=== PATIENT | male | born 1965 | race Caucasian/White ===

== ENCOUNTER 2020-08-15 07:59 | Emergency (ER) | payer OTHER ==
[2020-08-15] MEDS ORDERED: cefTRIAXone 2 GM Vial IV ONE (08:17)
[2020-08-15] MEDS ORDERED: Sodium Chloride 0.9% 1,000 ML IV ONE (08:17)
[2020-08-15] MEDS ORDERED: Sodium Chloride 0.9% 10 ML Syringe FLUSH PRN (08:17)
--- NOTE | 2020-08-15 08:17 | EDM.PDOC ---
ED HPI GENERAL MEDICAL PROBLEM - General Chief Complaint: Fever Stated Complaint: Fever Time Seen by Provider: 08/15/20 08:15 Source of Information: Reports: Patient, [facility]sp Records, Old Records ([facility] chart/EMR), Other ([facility] EMR) History Limitations: Reports: No Limitations - History of Present Illness INITIAL COMMENTS - FREE TEXT/NARRATIVE: The patient was brought to the emergency room via ambulance with heel scourer accompaniment with no treatment in route. Note that the patient did have a fever of 105.3 degrees at 12:30 PM yesterday with persistent intermittent fevers despite Tylenol therapy throughout the day and evening. He did have a fever of 102.9 at 4:30 AM with 650 mg of Tylenol given at that time. Patient does have a chronic left ischiatic decubitus ulcer with current wound VAC therapy with culture taken at [facility] in [place] last week. He is also had a recent negative COVID-19 evaluation with no known exposure to infection. Earlier this morning the halfway nurse did notice some increasing erythema in his left leg. Patient does have a chronic suprapubic catheter with catheter bag changed yesterday by patient history. The patient denies any current pain or discomfort, however note paraplegia as below. The patient also denies any recent cough, wheezing, dyspnea, etc.. The patient denies any chest pain/ pressure, heart flutter, dizziness, orthostasis, orthopnea, diaphoresis, paresthesias, recent decreased exercise tolerance, or any other anginal-type symptoms. No recent history of abdominal pain, heartburn, nausea, diarrhea, melena, gross hematochezia, or any food intolerance, including fatty foods, etc. with current colostomy bag care. Onset: Gradual Onset Date: 08/14/20 Onset Time: 12:30 Duration: Getting Worse Location: Reports: Other (No pain) Improves with: Reports: None Worsens with: Reports: None Context: Reports: Other (As above). Denies: Sick Contact, Trauma Associated Symptoms: Reports: Fever/Chills, Rash (Cellulitis left leg), Weakness (Stable chronic paraplegia of the lower extremities). Denies: Confusion, Chest Pain, Cough, Diaphoresis, Headaches, Loss of Appetite, Malaise, Nausea/Vomiting, Seizure, Shortness of Breath, Syncope Treatments ALMOND HULLER: Reports: Acetaminophen - Related Data Allergies Allergy/AdvReac Type Severity Reaction Status Date / Time No Known Allergies Allergy Verified 08/15/20 10:06 Past Medical History HEENT History: Reports: Cataract, Impaired Vision, Retinal Detachment. Denies: Allergic Rhinitis, Glaucoma, Hard of Hearing, Macular Degeneration, Otitis Media Other HEENT History: Left-sided retinal detachment in March 2018 with surgery as below. Patient does wear glasses. Cardiovascular History: Reports: Blood Clots/VTE/DVT, Cardiomyopathy, High Cholesterol, PVD, Other (See Below). Denies: Afib, Arrhythmia, CAD, Heart Failure, Heart Murmur, Hypertension, Syncope Other Cardiovascular History: Chronic cannulated left leg DVT by last venous Doppler studies on 05/06/2020. Previous DVT of the left leg on 09/01/2013 and 03/04/2012 with secondary bilateral PEs. Previous DVT of the left leg on 10/08/2011? Severe bilateral peripheral vascular disease of the lower extremities requiring stent placement as below. Elevated blood pressures without history of hypertension. Dyslipidemia. Grade 1 diastolic dysfunction by echocardiogram in 2019. Respiratory History: Reports: Intubation, Previous, PE, Sleep Apnea. Denies: Asthma, Bronchitis, Recurrent, COPD (No previous asthma or emphysema), Intubation, Difficult, Pneumonia, Recurrent, Pneumothorax, TB ( collapsed lungs tuberculosis any family) Other Respiratory History: Patient is compliant with his CPAP. Gastrointestinal History: Reports: Chronic Constipation, Colon Polyp, Diverticulosis, Fecal Incontinence, Gastritis, GERD, Hiatal Hernia, Other (See Below). Denies: Celiac Disease, Cholelithiasis, Chronic Diarrhea, Hepatitis, Inflammatory Bowel Disease, Irritable Bowel Syndrome, Jaundice, Pancreatitis Other Gastrointestinal History: Kennedy's esophagus although negative biopsy by EGD on 10/26/2016. History of recurrent colonic polyps including hyperplastic colonic polyp at the hepatic flexure and tubular adenoma [place] of the ascending colon on 10/24/2013, tubular adenoma in the sigmoid region on 10/26/2016 with additional possible small cecal polyp not evaluated at that time. Hepatomegaly. Genitourinary History: Reports: BPH (None none), Neurogenic Bladder, Retention, Urinary, Urinary Incontinence, UTI, Recurrent, Other (See Below). Denies: Acute Renal Failure, Chronic Renal Insuffiency, Renal Calculus, STD Other Genitourinary History: Neurogenic bladder secondary to paralysis as below. BPH with PSA elevation with no biopsies to this point. Musculoskeletal History: Reports: Arthritis, Back Pain, Chronic, Fracture, Osteoarthritis, Other (See Below). Denies: Gout, Neck Pain, Chronic, RA, SLE Other Musculoskeletal History: Left ankle fracture in August 2014 with surgery as below. Right foot calcaneal spur. Neurological History: Reports: Other (See Below) (Mini strokes dizziness nothing like that now). 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 Learning disability. Psychiatric History: Reports: Anxiety, Depression. Denies: Abuse, Victim of, ADD, ADHD, Addiction, Psych Hospitalization(s), PTSD, Suicide Attempt, Suicidal Ideation Endocrine/Metabolic History: Reports: Hypokalemia, Obesity/BMI 30+, Other (See Below). Denies: Diabetes, Type I, Diabetes, Type II, Diabetes Mellitus, Type 3c, Hypothyroidism, IDDM Other Endocrine/Metabolic History: Hyperglycemia with patient denying AODM. Hematologic History: Reports: Anemia, Blood Transfusion(s), Other (See Below) Other Hematologic History: Multiple blood transfusions in August 2019 secondary to lumbar AVM spontaneous rupture as above. Immunologic History: Reports: Immunosuppression, Other (See Below). Denies: AIDS, HIV, SLE Other Immunologic History: CLL Oncologic (Cancer) History: Reports: Leukemia, Other (See Below). Denies: Basal Cell Carcinoma, Colon, Esophageal, Hodgkin's Lymphoma, Lymphoma, Malignant Melanoma, Metastatic, Non-Hodgkin's Lymphoma, Prostate, Squamous Cell Carcinoma Other Oncologic History: CLL diagnosed on 10/11/2018 with previous chemotherapy. Dermatologic History: Reports: Other (See Below). Denies: Eczema, Psoriasis Other Dermatologic History: Recurrent decubitus ulcers secondary to paraplegia. - Infectious Disease History Infectious Disease History: Reports: Chicken Pox (Not certain). Denies: C- Difficile, Measles, Meningitis, Mononucleosis, MRSA, Mumps, Novel Coronavirus, Pertussis (Whooping Cough), Rheumatic Fever, Rubella, Scarlet Fever, Shingles, TB, VRE - Past Surgical History Head Surgeries/Procedures: Reports: None. Denies: Craniotomy HEENT Surgical History: Reports: Cataract Surgery, Oral Surgery, Other (See Below). Denies: Adenoidectomy, Eye Surgery, Laser Surgery, LASIK, Myringotomy w Tube(s), Naso-Sinus Surgery, Tonsillectomy Other HEENT Surgeries/Procedures: Left eye retinal detachment repair/vitrectomy/laser on 04/09/2018. Bilateral cataract surgery in August 2018. [place] teeth extraction x4 in his 20s. Cardiovascular Surgical History: Reports: Vascular Surgery, Other (See Below). Denies: Varicose Other Cardiovascular Surgeries/Procedures: Bilateral lower leg angioplasty and subsequent stent placement secondary to peripheral vascular disease on 04/21/2020. IVC filter placements in 2013, 12/05/2018, and 08/12/2019 with subsequent IVC filter removal on 02/11/2014, 03/10/2019, and 02/23/2020. Inferior vena cava umbrella placements Respiratory Surgical History: Reports: None. Denies: Thoracentesis GI Surgical History: Reports: Colonoscopy, Colostomy, EGD, Polypectomy, Other (See Below). Denies: Appendectomy, Cholecystectomy, Hernia, Abdominal, Hernia, Inguinal, Hernia Repair/Other Other GI Surgeries/Procedures: EGD and colonoscopy on 10/26/2016 with polypectomy as above. Previous colonoscopy on 10/24/2013 with polypectomies as above. Colostomy placement on 10/03/2019. Female Surgical History: Reports: Cystoscopy, Other (See Below) Other Female Surgeries/Procedures: Cystoscopy on 03/21/2019. Suprapubic catheter placement on 09/15/2019. Male Surgical History: Reports: Circumcision, Suprapubic Catheter Placement, Other (See Below). Denies: Prostate Biopsy, TURP-Transurethral Resection of Prostate, Vasectomy Other Male Surgeries/Procedures: Suprapubic catheter placement in August 2019. Circumcision as an . Endocrine Surgical History: Reports: None. Denies: Thyroid Biopsy Neurological Surgical History: Reports: Laminectomy, Lumbar Spine, Spinal Fusion, Other (See Below). Denies: C-Spine, Discectomy, Sacral Spine, Thoracic Spine, Vertebroplasty Other Neurological Surgeries/Procedures: Lumbar spine laminectomy and fusion with additional hematoma evacuation secondary to spontaneous AVM rupture on 08/10/2019. Musculoskeletal Surgical History: Reports: ORIF, Other (See Below). Denies: Arthroscopic Procedure, Carpal Tunnel, Ganglion Cyst, Joint Replacement, Shoulder Surgery Other Musculoskeletal Surgeries/Procedures:: ORIF of right ankle fracture on 08/27/2014 with subsequent hardware removal on 12/03/2014. Oncologic Surgical History: Reports: Bone Marrow Aspiration, Lumpectomy, Other (See Below) Other Oncologic Surgeries/Procedures: Bone marrow fine-needle aspiration and biopsy on 10/16/2018. Right axillary lymph node biopsy on 10/16/2018. Dermatological Surgical History: Reports: None - Past Imaging History Past Imaging History: Reports: Cardiac Echo (08/17/2019 with ejection fraction of 60-65% and findings as above.), CAT Scan (CT of the chest, abdomen, and pelvis on 07/27/2020 and 02/23/2020. CT of the abdomen pelvis on 05/06/2020. CT of the chest on 12/29/2011.), PET (PET/CT from the skull to the mid thigh on 04/21/2020.), Venous Doppler (Left leg on 05/06/2020.), Other (See Below) (Spinal angiograms on 11/24/2019 and 08/13/2019.) Social & Family History - Family History HEENT: Reports: Allergic Rhinitis, Other (See Below). Denies: Glaucoma, Macular Degeneration, Retinal Detachment Other HEENT Family History: Brother with allergic rhinitis. Cardiac: Reports: High Cholesterol, Hypertension, Other (See Below). Denies: Afib, Aneurysm, Arrhythmia, Blood Clots/VTE/DVT, Bypass, CAD, Heart Failure, Heart Murmur, DC, Stent, Syncope Other Cardiac Family History: Hypertension hyperlipidemia in mother, maternal uncle x2 and maternal aunt. Respiratory: Reports: Asthma, Other (See Below). Denies: COPD, PE, Pneumothorax, Sleep Apnea Other Respiratory Family Hisory: Brother with asthma. Neurological: Reports: CVA, Other (See Below). Denies: Alzheimers Disease, Cerebral Aneurysms, Dementia, Migraines, MS, Parkinson's, Seizure, TIA, Vertigo Other Neurological Family History: Paternal uncle with fatal CVA in his mid 60s. Endocrine/Metabolic: Reports: Diabetes, type II, Other (See Below). Denies: Diabetes, Gestational, Diabetes, Type I, Diabetes Mellitus, Type 3c (Thyroid problems in the family), Hypothyroidism, IDDM Other Endocrine/Metabolic Family History: Paternal grandmother with AODM. Oncologic: Reports: Leukemia, Other (See Below). Denies: Colon, Hodgkin's Lymphoma, Lung, Lymphoma, Non-Hodgkin's Lymphoma, Prostate, Skin Other Oncologic Family History: Maternal grandmother with fatal leukemia in her late 70s. - Tobacco Use Tobacco Use Status *Q: Never Tobacco User Tobacco Use Within Last Twelve Months: No Used Tobacco, but Quit: No Smoking Cessation Information Provided To Patient: No Second Hand Smoke Exposure: No Second Hand Smoke Education Provided: No - Caffeine Use Caffeine Use: Reports: Soda (1 soda per week). Denies: Coffee, Energy Drinks, Tea - Alcohol Use Alcohol Use History: No Days Per Week of Alcohol Use: 0 Number of Drinks Per Day: 0 Number of Drinks Per Day Comment: No previous DWIs, problems with alcohol abuse, etc.. Previously drank 12 beers per month. Total Drinks Per Week: 0 Alcohol Use in Last Twelve Months: No - Recreational Drug Use Recreational Drug Use: No Drug Use in Last 12 Months: No Recreational Drug Type: Denies: Amphetamines (Speed), Cocaine, Heroin, Inhalants (Glues, Solvents, Aerosols), LSD (Acid), Marijuana/Hashish, Methamphetamine, Morphine, Oxycodone - Living Situation & Occupation Living situation: Reports: Single (No children), Extended Care Facility ([facility] [place] [place] in [place] since October 2019 secondary to his paraplegia.) Occupation: Disabled (Disabled secondary to lower extremity paralysis as above in August 2019 and previously worked for the [employer].) ED ROS GENERAL - Review of Systems Review Of Systems: Comprehensive ROS is negative, except as noted in HPI. ED EXAM, GENERAL - Physical Exam Exam: See Below Exam Limited By: No Limitations General Appearance: Alert, No Apparent Distress Eye Exam: Bilateral Eye: EOMI, Normal Inspection (No nystagmus or vertigo. The patient is wearing glasses.), PERRL Ears: Normal External Exam, Normal Canal, Hearing Grossly Normal, Normal TMs Nose: Normal Inspection, Normal Mucosa, No Blood Throat/Mouth: Normal Inspection, Normal Lips, Normal Teeth, Normal Gums, Normal Oropharynx, Normal Voice, No Airway Compromise. No: Dysphagia, Perioral Cyanosis Head: Atraumatic, Normocephalic. No: Facial Swelling, Facial Tenderness, Sinus Tenderness Neck: Normal Inspection, Supple, Non-Tender, Full Range of Motion. No: Carotid Bruit, Lymphadenopathy (L), Lymphadenopathy (R), Thyromegaly Respiratory/Chest: No Respiratory Distress, Lungs Clear, Normal Breath Sounds, No Accessory Muscle Use, Chest Non-Tender. No: Pleural Rub, Retractions Cardiovascular: Normal Peripheral Pulses, No Gallop, No JVD, No Murmur, No Rub, Tachycardia (Regular rhythm). No: No Edema (Dependent edema as below), Gallop/S3, Gallop/S4, Extra Beats, Friction Rub Peripheral Pulses: 2+: Radial (L), Radial (R), Dorsalis Pedis (L), Dorsalis Pedis (R) GI/Abdominal: Normal Bowel Sounds, Soft, Non-Tender, No Organomegaly, No Distention, No Abnormal Bruit, No Mass, Other (Obese. Colostomy bag with brown stool). No: Guarding (Male) Exam: Deferred Rectal (Males) Exam: Deferred Back Exam: Normal Inspection, Full Range of Motion. No: CVA Tenderness (L), CVA Tenderness (R), Muscle Spasm Extremities: Non-Tender (Note paraplegia), Normal Capillary Refill, Pedal Edema (+1 bilateral pedal/pretibial edema), Other (Onychomycosis in the toenails. 4 cm grade 12 right lateral malleolar ulcer. +1+2 erythema extending over the extensor surface of the left thigh to the infrapatellar region.). No: Normal Range of Motion (Paraplegia lower extremities), Teri's Sign Neurological: Alert, Oriented, Normal Cognition, Other (Stable by history paraplegia of the lower extremities). No: Normal Gait Psychiatric: Normal Affect, Normal Mood Skin Exam: Erythema, Increased Warmth (Mild left leg), Wound/Incision (As above including additional left ischiatic decubitus ulcer with current wound VAC therapy). No: Diaphoretic, Lymphangitis Lymphatic: No Adenopathy Course - Vital Signs Last Recorded V/S: Last Vital Signs Temp 37.9 C 08/15/20 10:32 Pulse 102 H 08/15/20 10:32 Resp 18 08/15/20 10:32 BP 113/53 L 08/15/20 10:32 Pulse Ox 94 L 08/15/20 10:32 Vital Signs - 24 hr 08/15/20 08/15/20 08/15/20 08:00 08:15 08:30 Temperature [ 38.3 C H Temporal] Pulse, 108 H Peripheral [ Right Pulse Oximetry] Respiratory 18 Rate Blood Pressure 140/72 129/69 105/85 [Left Upper Arm ] O2 Sat by Pulse 95 Oximetry 08/15/20 08/15/20 08/15/20 08:40 08:55 09:10 Temperature [ 38.3 C H 37.8 C Temporal] Pulse, 106 H 105 H 107 H Peripheral [ Right Pulse Oximetry] Respiratory 18 18 18 Rate Blood Pressure 134/74 138/72 138/69 [Left Upper Arm ] O2 Sat by Pulse 96 96 95 Oximetry 08/15/20 08/15/20 09:26 10:32 Temperature [ 37.9 C Temporal] Pulse, 103 H 102 H Peripheral [ Right Pulse Oximetry] Respiratory 18 18 Rate Blood Pressure 133/72 113/53 L [Left Upper Arm ] O2 Sat by Pulse 95 94 L Oximetry - Orders/Labs/Meds Orders: Active Orders 24 hr Category Date Time Status Blood Pressure Mgt: Sepsis [RC] [id number] Care 08/15/20 08:18 Active Cardiac Monitoring [RC] CONTINUOUS Care 08/15/20 08:19 Active Chest 1V Frontal [CR] Stat Exams 08/15/20 08:17 Taken CULTURE BLOOD [BC] Stat Lab 08/15/20 08:16 Received CULTURE BLOOD [BC] Stat Lab 08/15/20 08:26 Received CULTURE URINE [RM] Stat Lab 08/15/20 08:34 Received Sodium Chloride 0.9% [Saline Flush] Med 08/15/20 08:17 Active 10 ml FLUSH ASDIRECTED PRN Vancomycin 2 gm Med 08/15/20 09:13 Active Sodium Chloride 0.9% [Normal Saline] 500 ml IV ONETIME Blood Culture x2 Reflex Set [OM.PC] Stat Oth 08/15/20 08:17 Ordered Isolation [COMM] Routine Oth 08/15/20 08:27 Active Saline Lock Insert [OM.PC] Stat Oth 08/15/20 08:17 Ordered Severe Sepsis Onset Time [OM.PC] Stat Oth 08/15/20 08:17 Ordered Medication Orders Vancomycin HCl 2 gm/ Sodium (Chloride) 500 mls @ 165 mls/hr IV ONETIME ONE Stop: 08/15/20 12:14 Last Admin: 08/15/20 09:40 Dose: 165 mls/hr Documented by: MICHAEL Sodium Chloride (Saline Flush) 10 ml FLUSH ASDIRECTED PRN PRN Reason: Keep Vein Open Labs: Laboratory Tests 08/15/20 08/15/20 08/15/20 Range/Units 08:03 08:16 08:16 WBC 30.5 H (4.0-10.2) K/uL RBC 4.71 (4.33-5.41) M/uL Hgb 12.5 L D (13.1-16.8) g/dL Hct 38.6 L (39.0-49.0) % MCV 82.0 L D (84.0-98.0) fL MCH 26.5 L (28.2-33.3) pg MCHC 32.4 (31.7-36.0) g/dL RDW 21.3 H (11.2-14.1) % Plt Count 191 (150-350) K/uL Neut % (Auto) 83.6 H (45.0-80.0) % Lymph % (Auto) 7.0 L (10.0-50.0) % Patrick % (Auto) 9.3 (2.0-14.0) % Eos % (Auto) 0.0 (0.0-5.0) % Baso % (Auto) 0.1 (0.0-2.0) % Neut # (Auto) 25.47 H (1.40-7.00) K/uL Lymph # (Auto) 2.14 (0.50-3.50) K/uL Patrick # (Auto) 2.85 H (0.00-1.00) K/uL Eos # (Auto) 0.01 (0.00-0.50) K/uL Baso # (Auto) 0.04 (0.00-0.20) K/uL PT 12.5 H (9.5-12.0) SEC INR 1.3 APTT 37.7 H (24.5-32.8) SEC Sodium (136-145) mmol/L Potassium (3.5-5.1) mmol/L Chloride (98-107) mmol/L Carbon Dioxide (21.0-32.0) mmol/L BUN (7-18) mg/dL Creatinine (0.51-1.17) mg/dL Est Cr Clr Drug Dosing Estimated GFR (MDRD) mL/min Glucose (74-106) mg/dL Lactic Acid (0.4-2.0) mmol/L Calcium (8.5-10.1) mg/dL Total Bilirubin (0.2-1.0) mg/dL AST (15-37) U/L ALT (12-78) U/L Alkaline Phosphatase (46-116) IU/L C-Reactive Protein (<=0.9) mg/dL Total Protein (6.4-8.2) g/dL Albumin (3.4-5.0) g/dL Amylase (25-115) U/L Lipase (73-393) U/L Specimen Type Urine Color Urine Appearance Urine pH (5.0-9.0) Ur Specific [place] (1.005-1.030) Urine Protein (NEGATIVE) mg/dL Urine Glucose (UA) (NEGATIVE) mg/dL Urine Ketones (NEGATIVE) mg/dL Urine Occult Blood (NEGATIVE) Urine Nitrite (NEGATIVE) Urine Bilirubin (NEGATIVE) Urine Urobilinogen (0.2-1.0) E.U./dL Ur Leukocyte Esterase (NEGATIVE) Urine RBC /HPF Urine WBC /HPF Ur Epithelial Cells /LPF Other Crystals /HPF Urine Bacteria (NONE TO FEW) /HPF SARS-CoV-2 RNA (FRANSICO) Negative (NEGATIVE) 08/15/20 08/15/20 08/15/20 Range/Units 08:16 08:16 08:34 WBC (4.0-10.2) K/uL RBC (4.33-5.41) M/uL Hgb (13.1-16.8) g/dL Hct (39.0-49.0) % MCV (84.0-98.0) fL MCH (28.2-33.3) pg MCHC (31.7-36.0) g/dL RDW (11.2-14.1) % Plt Count (150-350) K/uL Neut % (Auto) (45.0-80.0) % Lymph % (Auto) (10.0-50.0) % Patrick % (Auto) (2.0-14.0) % Eos % (Auto) (0.0-5.0) % Baso % (Auto) (0.0-2.0) % Neut # (Auto) (1.40-7.00) K/uL Lymph # (Auto) (0.50-3.50) K/uL Patrick # (Auto) (0.00-1.00) K/uL Eos # (Auto) (0.00-0.50) K/uL Baso # (Auto) (0.00-0.20) K/uL PT (9.5-12.0) SEC INR APTT (24.5-32.8) SEC Sodium 133 L (136-145) mmol/L Potassium 4.3 (3.5-5.1) mmol/L Chloride 97 L (98-107) mmol/L Carbon Dioxide 26.4 (21.0-32.0) mmol/L BUN 19 H (7-18) mg/dL Creatinine 0.61 (0.51-1.17) mg/dL Est Cr Clr Drug Dosing TNP Estimated GFR (MDRD) > 60 mL/min Glucose 283 H (74-106) mg/dL Lactic Acid 2.2 H (0.4-2.0) mmol/L Calcium 9.0 (8.5-10.1) mg/dL Total Bilirubin 0.5 (0.2-1.0) mg/dL AST 27 (15-37) U/L ALT 51 (12-78) U/L Alkaline Phosphatase 82 (46-116) IU/L C-Reactive Protein 62.2 H (<=0.9) mg/dL Total Protein 7.2 (6.4-8.2) g/dL Albumin 3.4 (3.4-5.0) g/dL Amylase 16 L (25-115) U/L Lipase 76 (73-393) U/L Specimen Type Urinsp Urine Color Yellow Urine Appearance Turbid Urine pH 5.0 (5.0-9.0) Ur Specific [place] >= 1.030 (1.005-1.030) Urine Protein >=300 H (NEGATIVE) mg/dL Urine Glucose (UA) Negative (NEGATIVE) mg/dL Urine Ketones Negative (NEGATIVE) mg/dL Urine Occult Blood Large H (NEGATIVE) Urine Nitrite Positive H (NEGATIVE) Urine Bilirubin Negative (NEGATIVE) Urine Urobilinogen 0.2 (0.2-1.0) E.U./dL Ur Leukocyte Esterase Small H (NEGATIVE) Urine RBC 5-10 H /HPF Urine WBC Packed /HPF Ur Epithelial Cells Occasional /LPF Other Crystals Occasional /HPF Urine Bacteria Many H (NONE TO FEW) /HPF SARS-CoV-2 RNA (FRANSICO) (NEGATIVE) Meds: Medications Generic Name Dose Route Start Last Admin Trade Name Freq PRN Reason Stop Dose Admin Vancomycin HCl 2 gm/ Sodium 500 mls @ 165 mls/hr 08/15/20 09:13 08/15/20 09:40 Chloride IV 08/15/20 12:14 165 mls/hr ONETIME ONE Administration Sodium Chloride 10 ml 08/15/20 08:17 Saline Flush FLUSH ASDIRECTED PRN Keep Vein Open Discontinued Medications Generic Name Dose Route Start Last Admin Trade Name Freq PRN Reason Stop Dose Admin Ceftriaxone Sodium 2 gm 08/15/20 08:17 08/15/20 08:50 Rocephin IV 08/15/20 08:18 2 gm STAT ONE Administration Famotidine 40 mg 08/15/20 08:28 08/15/20 08:50 Pepcid IVPUSH 08/15/20 08:29 40 mg ONETIME ONE Administration Sodium Chloride 1,000 mls @ 999 mls/hr 08/15/20 08:17 08/15/20 08:51 Normal Saline IV 08/15/20 09:17 999 mls/hr BOLUS ONE Administration Protocol Pantoprazole Sodium 40 mg 08/15/20 08:28 08/15/20 08:41 Protonix Iv IVPUSH 08/15/20 08:29 40 mg ONETIME ONE Administration Vancomycin HCl Confirm 08/15/20 09:30 08/15/20 09:41 Vancomycin Administered 08/15/20 09:31 Not Given Dose 2 gm .ROUTE .STK-MED ONE Departure - Departure Time of Disposition: 11:03 Disposition: DC/Tfer to [facility] 02 Clinical Impression: CLL (chronic lymphocytic leukemia), Hyperglycemia, Obesity (BMI 30-39.9), Peptic reflux disease, Hyponatremia, Paraplegia Sepsis Qualifiers: Sepsis type: sepsis due to unspecified organism Sepsis acute organ dysfunction status: without acute organ dysfunction Qualified Code(s): A41.9 - Sepsis, unspecified organism Anemia Qualifiers: Anemia type: other cause Other causes of anemia: other cause, not classified Qualified Code(s): D64.89 - Other specified anemias Osteoarthritis Qualifiers: Osteoarthritis location: multiple joints Osteoarthritis type: primary Qualified Code(s): M89.49 - Other hypertrophic osteoarthropathy, multiple sites Cellulitis Qualifiers: Site of cellulitis: extremity Site of cellulitis of extremity: lower extremity Laterality: left Qualified Code(s): L03.116 - Cellulitis of left lower limb UTI (urinary tract infection) Qualifiers: Urinary tract infection type: acute cystitis Hematuria presence: with hematuria Qualified Code(s): N30.01 - Acute cystitis with hematuria - Discharge Information *PRESCRIPTION DRUG MONITORING PROGRAM REVIEWED*: Not Applicable *COPY OF PRESCRIPTION DRUG MONITORING REPORT IN PATIENT GAGE: Not Applicable Referrals: PCP,None [Primary Care Provider] - Forms: ED Department Discharge, Interfacility Transfer [facility] Sepsis Event Note (ED) - Focused Exam Vital Signs: Vital Signs Temp Pulse Resp BP Pulse Ox 08/15/20 10:32 37.9 C 102 H 18 113/53 L 94 L 08/15/20 09:26 103 H 18 133/72 95 08/15/20 09:10 37.8 C 107 H 18 138/69 95 08/15/20 08:55 105 H 18 138/72 96 08/15/20 08:40 38.3 C H 106 H 18 134/74 96 08/15/20 08:30 105/85 08/15/20 08:15 129/69 08/15/20 08:00 38.3 C H 108 H 18 140/72 95 - Problem List & Annotations (1) Sepsis SNOMED Code(s): 72271232 Code(s): A41.9 - SEPSIS, UNSPECIFIED ORGANISM Status: Acute Priority: High Current Visit: No Onset Date: 08/15/20 Annotation/Comment:: Sepsis by clinical picture and exam with sepsis order set initiated immediately upon patient's arrival to this facility. Note significant fever, leukocytosis, mildly elevated lactic acid level, and significantly elevated CRP. Patient did receive 2 g of IV Rocephin with subsequent initiation of 2 g of IV vancomycin with dose confirmed with on-call pharmacist. In addition, initiation of 1 L IV bolus of normal saline. Telephone consultation at 9:[address] Baires, emergency room physician at [facility], did discuss the case further with their hospitalist, who did accept the patient for direct admission at 10 AM this morning. No further treatment recommendations were given. Multiple possible sources of infection, including probable urosepsis, cellulitis of the left leg, left ischiatic decubitus ulcers, etc.. Blood cultures x2 and urine specimen for culture and sensitivity were collected prior to initiation of the antibiotic therapy as above. Vital signs and clinical exam were stable at time of transfer with continuation of the IV therapy as above by the paramedics in route. Qualifiers: Sepsis type: sepsis due to unspecified organism Sepsis acute organ dysfunction status: without acute organ dysfunction Qualified Code(s): A41.9 - Sepsis, unspecified organism (2) UTI (urinary tract infection) SNOMED Code(s): 45024870 Code(s): N39.0 - URINARY TRACT INFECTION, SITE NOT SPECIFIED Status: Acute Priority: High Current Visit: No Onset Date: 08/15/20 Annotation/Comment:: Urine specimen set up for culture and sensitivity. Possible urosepsis as above. Note suprapubic catheter secondary to neurogenic bladder. Qualifiers: Urinary tract infection type: acute cystitis Hematuria presence: with hematuria Qualified Code(s): N30.01 - Acute cystitis with hematuria (3) Cellulitis SNOMED Code(s): 878081851 Code(s): L03.90 - CELLULITIS, UNSPECIFIED Status: Acute Priority: High Current Visit: No Onset Date: 08/15/20 Annotation/Comment:: Cellulitis of the left leg possibly extending from his left ischiatic decubitus ulcer as above. Culture has already been obtained at [facility] as above, however results are not available at this time. Qualifiers: Site of cellulitis: extremity Site of cellulitis of extremity: lower extremity Laterality: left Qualified Code(s): L03.116 - Cellulitis of left lower limb (4) CLL (chronic lymphocytic leukemia) SNOMED Code(s): 22489854 Code(s): C91.10 - CHRONIC LYMPHOCYTIC LEUK OF B-CELL TYPE NOT ACHIEVE REMIS Status: Chronic Priority: High Current Visit: No Annotation/Comment:: Significant leukocytosis secondary to his current sepsis and previous CLL. By patient history as oncologist was planning restarting his chemotherapy. Oncology consultation by accepting providers. (5) Anemia SNOMED Code(s): 790793830 Code(s): D64.9 - ANEMIA, UNSPECIFIED Status: Acute Priority: Medium Current Visit: No Onset Date: 08/15/20 Annotation/Comment:: No evidence of acute bleeding at this time despite Xarelto therapy. Continue to observe closely by her regular providers with further work-up depending on his clinical course. No thrombocytopenia despite his CLL. Qualifiers: Anemia type: other cause Other causes of anemia: other cause, not classified Qualified Code(s): D64.89 - Other specified anemias (6) Hyperglycemia SNOMED Code(s): 94742881 Code(s): R73.9 - HYPERGLYCEMIA, UNSPECIFIED Status: Chronic Priority: Medium Current Visit: No Annotation/Comment:: Long history of hyperglycemia without known diabetes mellitus. Recommend glycosylated hemoglobin by accepting providers. Insulin sliding scale depending on his clinical course. (7) Hyponatremia SNOMED Code(s): 73823848 Code(s): E87.1 - HYPO-OSMOLALITY AND HYPONATREMIA Status: Acute Priority: Medium Current Visit: No Onset Date: 08/15/20 Annotation/Comment:: Observe for now. 1 L IV bolus of normal saline given as above. (8) Obesity (BMI 30-39.9) SNOMED Code(s): 935181614, 008708818 Code(s): E66.9 - OBESITY, UNSPECIFIED Status: Chronic Priority: Medium Current Visit: No Annotation/Comment:: Recommend fasting lipid panel by accepting providers. Weight loss in moderation is advisable. (9) Osteoarthritis SNOMED Code(s): 788725908 Code(s): M19.90 - UNSPECIFIED OSTEOARTHRITIS, UNSPECIFIED SITE Status: Chronic Priority: Medium Current Visit: No Annotation/Comment:: Otherwise stable by history. 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 In addition, note secondary stool and urine incontinence, including neurogenic bladder. Decubiti prophylaxis and affect, including in his feet bilaterally. Note secondary disability and current halfway care at [facility] in [place]. (11) Peptic reflux disease SNOMED Code(s): 604967534 Code(s): K21.9 - GASTRO-ESOPHAGEAL REFLUX DISEASE WITHOUT ESOPHAGITIS Status: Chronic Priority: Medium Current Visit: No Annotation/Comment:: No evidence of acute GI bleed. High-dose IV Pepcid and Protonix given as GI prophylaxis. Note previous history of Kennedy's esophagitis however negative biopsy at time of EGD on 10/26/2016. - Problem List Review Problem List Initiated/Reviewed/Updated: Yes - My Orders Last 24 Hours: My Active Orders 08/15/20 08:16 CULTURE BLOOD [BC] Stat 08/15/20 08:17 Chest 1V Frontal [CR] Stat Sodium Chloride 0.9% [Saline Flush] 10 ml FLUSH ASDIRECTED PRN Blood Culture x2 Reflex Set [OM.PC] Stat Saline Lock Insert [OM.PC] Stat Severe Sepsis Onset Time [OM.PC] Stat 08/15/20 08:18 Blood Pressure Mgt: Sepsis [RC] [id number] 08/15/20 08:19 Cardiac Monitoring [RC] CONTINUOUS 08/15/20 08:26 CULTURE BLOOD [BC] Stat 08/15/20 08:27 Isolation [COMM] Routine 08/15/20 08:34 CULTURE URINE [RM] Stat 08/15/20 09:13 Vancomycin 2 gm Sodium Chloride 0.9% [Normal Saline] 500 ml IV ONETIME - Assessment/Plan Last 24 Hours: My Active Orders 08/15/20 08:16 CULTURE BLOOD [BC] Stat 08/15/20 08:17 Chest 1V Frontal [CR] Stat Sodium Chloride 0.9% [Saline Flush] 10 ml FLUSH ASDIRECTED PRN Blood Culture x2 Reflex Set [OM.PC] Stat Saline Lock Insert [OM.PC] Stat Severe Sepsis Onset Time [OM.PC] Stat 08/15/20 08:18 Blood Pressure Mgt: Sepsis [RC] [id number] 08/15/20 08:19 Cardiac Monitoring [RC] CONTINUOUS 08/15/20 08:26 CULTURE BLOOD [BC] Stat 08/15/20 08:27 Isolation [COMM] Routine 08/15/20 08:34 CULTURE URINE [RM] Stat 08/15/20 09:13 Vancomycin 2 gm Sodium Chloride 0.9% [Normal Saline] 500 ml IV ONETIME Assessment:: As above Plan: As above. Extensive precautions were given to the patient, who is in agreement with the treatment plan. Ambulance transfer to [facility] with heel scourer accompaniment as above.
[2020-08-15] MEDS ORDERED: Pantoprazole 40 MG Vial IVPUSH ONE (08:28)
[2020-08-15] MEDS ORDERED: Famotidine 20 MG/2 ML SDV IVPUSH ONE (08:28)
[2020-08-15 08:39] LABS: PTT,PARTIAL THROMBOPLSTIN TIME 37.7 SEC (24.5-32.8)
[2020-08-15 08:43] LABS: CHLORIDE,CL 97 mmol/L (98-107); SODIUM,NA 133 mmol/L (136-145)
[2020-08-15] MEDS ORDERED: Vancomycin 2 GM in Sodium Chloride 0.9% 500 ML IV ONE (09:13)
[2020-08-15] MEDS ORDERED: Vancomycin 1 GM SDV ONE (09:30)
[2020-08-15 14:05] VITALS: BP 116/34; PULSE 103
== END 2020-08-15 11:03 ==
LOC: LL.ED 07:59
DX: A41.9 Sepsis, unspecified organism (principal); L03.116 Cellulitis of left lower limb; C91.10 Chronic lymphocytic leukemia of B-cell type not having achieved remission; N30.01 Acute cystitis with hematuria; M89.49 Other hypertrophic osteoarthropathy, multiple sites; D64.89 Other specified anemias; K21.9 Gastro-esophageal reflux disease without esophagitis; G82.20 Paraplegia, unspecified; R73.9 Hyperglycemia, unspecified; E87.1 Hypo-osmolality and hyponatremia; L89.329 Pressure ulcer of left buttock, unspecified stage; E66.9 Obesity, unspecified; Z68.39 Body mass index [BMI] 39.0-39.9, adult; Z20.828 Contact with and (suspected) exposure to other viral communicable diseases
CPT/HCPCS: 36415; 71045; 80053; 81001; 82150; 83605; 83690; 85025; 85610; 85730; 86140; 87040; 87086; 87088; 87186; 87804; 96365; 96367; 96375; 99285-25; C9113; J0696; J3370; J3490; J7030; J7040; U0002

== ENCOUNTER 2020-11-15 15:43 | Emergency (ER) | payer OTHER ==
[2020-11-15 15:46] VITALS: PULSE 133
[2020-11-15] MEDS ORDERED: Acetaminophen 325 MG Tab PO ONE (15:54)
[2020-11-15] MEDS ORDERED: Sodium Chloride 0.9% 10 ML Syringe FLUSH PRN (15:54)
[2020-11-15] MEDS ORDERED: cefTRIAXone 1 GM in Sodium Chloride 0.9% 100 ML IV ONE (15:54)
--- NOTE | 2020-11-15 15:54 | EDM.PDOC ---
ED HPI GENERAL MEDICAL PROBLEM - General Chief Complaint: Fever Stated Complaint: fever, on chemo meds Time Seen by Provider: 11/15/20 15:54 Source of Information: Reports: Patient, EMS, Intermediate Records, Old Records ([facility] chart/EMR), Other ([facility] EMR). 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 Patient started having a fever of 105 degrees temporally since about 10 AM this morning with 2 previous 650 mg doses of Tylenol last at 2:40 PM in the correction. Limited blood work was drawn earlier today with patient having leukocytosis, however note history of CLL currently under oral chemotherapy. The patient denies any chest pain/pressure, heart flutter, dizziness, orthostasis, orthopnea, diaphoresis, paresthesias, recent decreased exercise tolerance, or any other anginal-type symptoms. No recent history of abdominal pain, heartburn, nausea, diarrhea, melena, gross hematochezia, or any food intolerance, including fatty foods, etc.. He does have a suprapubic catheter in place with no history of foul-smelling urine, colic, etc. The patient also denies any recent cough, wheezing, dyspnea, etc.. He denies any specific pain or other discomfort. No history of recent headaches, visual changes, diplopia, change in mental status, or other change in neurological status with stable chronic paraplegia. Onset: Today, Gradual Onset Date: 11/15/20 Onset Time: 10:00 Duration: Other (No pain) Location: Reports: Other (As above) Quality: Reports: Same as Previous Episode Severity: Severe (Probable sepsis) Improves with: Reports: None Worsens with: Reports: None Context: Reports: Other (As above). Denies: Sick Contact, Trauma Associated Symptoms: Reports: Fever/Chills, Weakness (Stable paraplegia). 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 Acidophilus/L.bulgaricus [Floranex Tablet] 1 tab PO BID 08/15/20 [History] Melatonin 10 mg PO BEDTIME 08/15/20 [History] Multivitamins [Tab-A-Maritza] 1 tab PO DAILY 08/15/20 [History] Nystatin [Nystatin Crm] 1 applic TOP BID PRN 08/15/20 [History] Pantoprazole Sodium [Protonix] 40 mg PO DAILY 08/15/20 [History] Rivaroxaban [Xarelto] 20 mg PO DAILY 08/15/20 [History] polyethylene glycoL 3350 [MiraLAX] 17 gm PO DAILY 08/15/20 [History] Past Medical History HEENT History: Reports: Allergic Rhinitis, Cataract, Impaired Vision, Retinal Detachment. Denies: Glaucoma, Hard of Hearing, Macular Degeneration, Otitis Media, Sinusitis Other HEENT History: Left-sided retinal detachment in March 2018 with surgery as below. Patient does wear glasses. Cardiovascular History: Reports: Blood Clots/VTE/DVT, Cardiomyopathy, High Cholesterol, PVD, Other (See Below). Denies: Afib, Aneurysm, Arrhythmia, CAD, Heart Failure, Heart Murmur, Hypertension, TX, Syncope Other Cardiovascular History: Chronic cannulated left leg DVT by last venous Doppler studies on 05/06/2020. Previous DVT of the left leg on 09/01/2013 and 03/04/2012 with secondary bilateral PEs. Previous DVT of the left leg on 10/08/2011? Severe bilateral peripheral vascular disease of the lower extremities requiring stent placement as below. Elevated blood pressures without history of hypertension. Dyslipidemia. Grade 1 diastolic dysfunction by echocardiogram in 2019. Respiratory History: Reports: Intubation, Previous, PE, Sleep Apnea. Denies: Asthma, Bronchitis, Recurrent, COPD, Intubation, Difficult, Pneumonia, Recurrent, Pneumothorax, Pulmonary Fibrosis, TB Other Respiratory History: History of bilateral PEs as above. Patient is compliant with his CPAP. Gastrointestinal History: Reports: Chronic Constipation, Colon Polyp, Diverticulosis, Fecal Incontinence, Gastritis, GERD, Hiatal Hernia, Other (See Below). Denies: Celiac Disease, Cholelithiasis, GI Bleed, Inflammatory Bowel Disease, Irritable Bowel Syndrome, Jaundice, Pancreatitis, PUD Other Gastrointestinal History: Kennedy's esophagus although negative biopsy by EGD on 10/26/2016. History of recurrent colonic polyps including hyperplastic colonic polyp at the hepatic flexure and tubular adenoma [place] of the ascending colon on 10/24/2013, tubular adenoma in the sigmoid region on 10/26/2016 with additional possible small cecal polyp not evaluated at that time. Hepatomegaly. Genitourinary History: Reports: BPH, Neurogenic Bladder, Retention, Urinary, Urinary Incontinence, UTI, Recurrent, Other (See Below). Denies: Acute Renal Failure, Chronic Renal Insuffiency, Renal Calculus, STD Other Genitourinary History: Neurogenic bladder secondary to paralysis as below. BPH with PSA elevation with no biopsies to this point. Musculoskeletal History: Reports: Arthritis, Back Pain, Chronic, Fracture, Osteoarthritis, Other (See Below). Denies: Gout, Neck Pain, Chronic, Osteopo rosis, RA, SLE Other Musculoskeletal History: Left ankle fracture in August 2014 with surgery as below. Right foot calcaneal spur. Neurological History: Reports: Other (See Below). 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 Learning disability. Psychiatric History: Reports: Anxiety, Depression. Denies: Abuse, Victim of, ADD, ADHD, Addiction, Psych Hospitalization(s), Psychosis, PTSD, Suicide Attempt, Suicidal Ideation Endocrine/Metabolic History: Reports: Hypokalemia, Obesity/BMI 30+, Other (See Below). Denies: Diabetes, Type I, Diabetes, Type II, Diabetes Mellitus, Type 3c, IDDM Other Endocrine/Metabolic History: Hyperglycemia with patient denying AODM. Hyponatremia. Hematologic History: Reports: Anemia, Blood Transfusion(s), Other (See Below). Denies: Iron Deficiency Other Hematologic History: Multiple blood transfusions in August 2019 secondary to lumbar AVM spontaneous rupture as above. Immunologic History: Reports: Immunosuppression, Other (See Below). Denies: AIDS, HIV, SLE Other Immunologic History: CLL Oncologic (Cancer) History: Reports: Leukemia, Other (See Below). Denies: Basal Cell Carcinoma, Bladder, Colon, Lymphoma, Malignant Melanoma, Non-Hodgkin's Lymphoma, Pancreatic, Squamous Cell Carcinoma Other Oncologic History: CLL diagnosed on 10/11/2018 with previous chemotherapy and current oral chemotherapy. Dermatologic History: Reports: Decubitus Ulcer, Other (See Below). Denies: Eczema, Psoriasis Other Dermatologic History: Recurrent decubitus ulcers secondary to paraplegia. - Infectious Disease History Infectious Disease History: Reports: Chicken Pox (Not certain), Novel Coronavirus (Positive on 09/18/2020 with subsequent immunizations x2 and negative follow-up rapid tests x2). Denies: C-Difficile, Measles, Meningitis, Mononucleosis, MRSA, Mumps, Pertussis (Whooping Cough), Rheumatic Fever, Rubella, Scarlet Fever, Shingles, TB, VRE - Past Surgical History Head Surgeries/Procedures: Reports: None HEENT Surgical History: Reports: Cataract Surgery, Eye Surgery, Laser Surgery, Oral Surgery, Retinal, Other (See Below). Denies: Adenoidectomy, LASIK, Myringotomy w Tube(s), Naso-Sinus Surgery, Tonsillectomy Other HEENT Surgeries/Procedures: Left eye retinal detachment repair/vitrectomy/laser on 04/09/2018. Bilateral cataract surgery in August 2018. [place] teeth extraction x4 in his 20s. Cardiovascular Surgical History: Reports: Other (See Below) Other Cardiovascular Surgeries/Procedures: Bilateral lower leg angioplasty and subsequent bilateral iliac stent placement secondary to peripheral vascular disease on 04/21/2020. IVC filter placements in 2013, 12/05/2018, and 08/12/2019 with subsequent IVC filter removal on 02/11/2014, 03/10/2019, and 02/23/2020. Respiratory Surgical History: Reports: None. Denies: Thoracentesis GI Surgical History: Reports: Colonoscopy, EGD, Polypectomy. Denies: Appendectomy, Cholecystectomy, Hernia, Abdominal, Hernia, Inguinal, Hernia Repair/Other Other GI Surgeries/Procedures: EGD and colonoscopy on 10/26/2016 with polypectomy as above. Previous colonoscopy on 10/24/2013 with polypectomies as above. Colostomy placement on 10/03/2019. Male Surgical History: Reports: Other (See Below). Denies: Vasectomy Other Male Surgeries/Procedures: Cystoscopy on 03/21/2019. Suprapubic catheter placement on 09/15/2019. Endocrine Surgical History: Reports: None. Denies: Thyroid Biopsy Neurological Surgical History: Reports: Laminectomy, Lumbar Spine, Spinal Fusion. Denies: C-Spine, Discectomy Other Neurological Surgeries/Procedures: Lumbar spine laminectomy and fusion with additional hematoma evacuation secondary to spontaneous AVM rupture on 08/10/2019. Musculoskeletal Surgical History: Reports: ORIF. Denies: Arthroscopic Procedure , Carpal Tunnel, Ganglion Cyst, Shoulder Surgery Other Musculoskeletal Surgeries/Procedures:: ORIF of right ankle fracture on 08/27/2014 with subsequent hardware removal on 12/03/2014. Oncologic Surgical History: Reports: Bone Marrow Aspiration, Lumpectomy, Other (See Below) Other Oncologic Surgeries/Procedures: Bone marrow fine-needle aspiration and biopsy on 10/16/2018. Right axillary lymph node biopsy on 10/16/2018. Dermatological Surgical History: Reports: None - Past Imaging History Past Imaging History: Reports: Cardiac Echo (Cardiac echocardiogram on 08/17/2019 with ejection fraction of 60-65% and otherwise findings as above. Previous echocardiogram on 08/17/2019 with ejection fraction of 60-65%.), CAT Scan (CT of the head on 10/12/2020. CT of the chest, abdomen, and pelvis on 10/11/2020, 07/27/2020 and 02/23/2020. CT of the abdomen pelvis on 05/06/2020. CT of the chest on 12/29/2011.), PET (PET/CT from the skull to the mid thigh on 04/21/2020.), Venous Doppler (Left leg on 05/06/2020.), Other (See Below) (Spinal angiograms on 11/24/2019 and 08/13/2019.) Social & Family History - Family History HEENT: Reports: Allergic Rhinitis, Other (See Below). Denies: Glaucoma, Macular Degeneration, Retinal Detachment Other HEENT Family History: Brother with allergic rhinitis. Cardiac: Reports: High Cholesterol, Hypertension, Other (See Below). Denies: Afib, Aneurysm, Arrhythmia, Blood Clots/VTE/DVT, CAD, Cardiomyopathy, Heart Failure, Heart Murmur, TX, Syncope Other Cardiac Family History: Hypertension hyperlipidemia in mother, maternal uncle x2 and maternal aunt. Respiratory: Reports: Asthma, Other (See Below). Denies: COPD, PE, Pneumothorax, Sleep Apnea Other Respiratory Family Hisory: Brother with asthma. GI: Reports: None. Denies: Celiac Disease, Cholelithiasis, Colon Polyps, GERD, GI bleed, Inflammatory Bowel Disease, Irritable Bowel Syndrome : Reports: None. Denies: Dialysis, Renal Calculus, Renal Disease/Insufficiency OBGYN: Reports: None. Denies: Endometriosis, Recurrent Spontaneous Musculoskeletal: Reports: None. Denies: Arthritis, Gout, RA Neurological: Reports: CVA, Other (See Below). Denies: Alzheimers Disease, Dementia, Migraines, Parkinson's, Seizure, TIA Other Neurological Family History: Paternal uncle with fatal CVA in his mid 60s. Endocrine/Metabolic: Reports: Diabetes, type II, Other (See Below). Denies: Diabetes, Gestational, Diabetes, Type I, Diabetes Mellitus, Type 3c, Hypothyroidism, IDDM Other Endocrine/Metabolic Family History: Paternal grandmother with AODM. Oncologic: Reports: Leukemia, Other (See Below). Denies: Colon, Hodgkin's Lymphoma, Lymphoma, Non-Hodgkin's Lymphoma, Prostate, Skin Other Oncologic Family History: Maternal grandmother with fatal leukemia in her late 70s. - Tobacco Use Tobacco Use Status *Q: Never Tobacco User Tobacco Use Within Last Twelve Months: No Used Tobacco, but Quit: No Smoking Cessation Information Provided To Patient: No Second Hand Smoke Exposure: No Second Hand Smoke Education Provided: No - Caffeine Use Caffeine Use: Reports: Soda (1 soda per week). Denies: Coffee, Energy Drinks, Tea - Alcohol Use Alcohol Use History: No Days Per Week of Alcohol Use: 0 Number of Drinks Per Day: 0 Number of Drinks Per Day Comment: Previously drank 12 beers per month. No previous DWIs, problems with alcohol abuse, etc. Total Drinks Per Week: 0 Alcohol Use in Last Twelve Months: No - Recreational Drug Use Recreational Drug Use: No Drug Use in Last 12 Months: No Recreational Drug Type: Denies: Amphetamines (Speed), Cocaine, Heroin, Inhalants (Glues, Solvents, Aerosols), LSD (Acid), Marijuana/Hashish, Methamphetamine, Morphine, Oxycodone - Sexual History Sexual History: Reports: None - Living Situation & Occupation Living situation: Reports: Single (No children), Extended Care Facility ([facility] home in [place] since October 2019 secondary to his paraple mac.) Occupation: Disabled (Disabled secondary to lower extremity paralysis as above in August 2019 and previously worked for the [employer] ED ROS GENERAL - Review of Systems Review Of Systems: Comprehensive ROS is negative, except as noted in HPI. ED EXAM, GENERAL - Physical Exam Exam: See Below Exam Limited By: No Limitations General Appearance: Alert, WD/WN, No Apparent Distress Eye Exam: Bilateral Eye: EOMI, Normal Inspection (No vertigo or nystagmus), PERRL Ears: Normal External Exam, Normal Canal, Hearing Grossly Normal, Normal TMs Nose: Normal Inspection, Normal Mucosa, No Blood Throat/Mouth: Normal Inspection, Normal Lips, Normal Teeth, Normal Gums, Normal Oropharynx, Normal Voice, No Airway Compromise. No: Dysphagia, Perioral Cyanosis Head: Atraumatic, Normocephalic. No: Facial Swelling, Facial Tenderness, Sinus Tenderness Neck: Normal Inspection, Supple, Non-Tender, Full Range of Motion. No: Carotid Bruit, Lymphadenopathy (L), Lymphadenopathy (R), Thyromegaly Respiratory/Chest: No Respiratory Distress, No Accessory Muscle Use, Chest Non- Tender, Rales (Mild diffuse bilateral). No: Rhonchi, Wheezing, Pleural Rub, Retractions Cardiovascular: Normal Peripheral Pulses, No Edema, No JVD, No Murmur, No Rub, Tachycardia (Regular rhythm). No: Gallop/S3, Gallop/S4, Friction Rub Peripheral Pulses: 2+: Radial (L), Radial (R), Dorsalis Pedis (L), Dorsalis Pedis (R) GI/Abdominal: Normal Bowel Sounds, Soft, Non-Tender, No Organomegaly, No Distention, No Abnormal Bruit, No Mass, Pelvis Stable, Other (Obese. Left upper quadrant colostomy noted. Suprapubic catheter noted.). No: Guarding (Male) Exam: Deferred Rectal (Males) Exam: Deferred Back Exam: Normal Inspection, Full Range of Motion. No: CVA Tenderness (L), CVA Tenderness (R), Muscle Spasm Extremities: Non-Tender, No Pedal Edema, Normal Capillary Refill, Other (Bilateral stable by history paraplegia in his legs). No: Teri's Sign Neurological: Alert, Oriented, Normal Cognition, Other (Bilateral lower leg paraplegia as above) Psychiatric: Normal Affect, Normal Mood Skin Exam: Decubitus (Large Deep decubitus ulcer 4 cm in diameter in the mid lumbar region with packing and dressing in place. No significant erythema, drainage, lymphangitis, etc.). No: Diaphoretic, Erythema, Increased Warmth, Lymphangitis, Wound/Incision Lymphatic: No Adenopathy Course - Vital Signs Last Recorded V/S: Last Vital Signs Temp 37.2 C 11/15/20 18:00 Pulse 133 H 11/15/20 15:44 Resp 20 11/15/20 18:00 BP 87/54 L 11/15/20 18:00 Pulse Ox 97 11/15/20 18:00 Vital Signs - 24 hr 11/15/20 11/15/20 11/15/20 15:44 16:50 17:30 Temperature [ 39.4 C H 37.7 C 37.2 C Oral] Pulse, 133 H Peripheral [ Left Pulse Oximetry] Respiratory 18 24 H 22 H Rate Blood Pressure 109/54 L 90/54 L 90/48 L [Left Lower Arm ] O2 Sat by Pulse 94 L 97 97 Oximetry 11/15/20 18:00 Temperature [ 37.2 C Oral] Pulse, Peripheral [ Left Pulse Oximetry] Respiratory 20 Rate Blood Pressure 87/54 L [Left Lower Arm ] O2 Sat by Pulse 97 Oximetry - Orders/Labs/Meds Orders: Active Orders 24 hr Category Date Time Status Cardiac Monitoring [RC] . DIRECTED Care 11/15/20 16:00 Active Cardiac Monitoring [RC] CONTINUOUS Care 11/15/20 15:55 Active Communication Order [RC] ROUTINE Care 11/15/20 15:55 Active Oxygen Therapy, ED [RC] PRN Care 11/15/20 15:55 Active Peripheral IV Care [RC] . DIRECTED Care 11/15/20 15:56 Active Pulse Oximetry [RC] CONTINUOUS Care 11/15/20 15:55 Active Up With Assistance [RC] ASDIRECTED Care 11/15/20 15:55 Active Nothing Per Oral Diet [DIET] Diet 11/15/20 Breakfast Active Chest 1V Frontal [CR] Stat Exams 11/15/20 15:55 Taken CULTURE BLOOD [BC] Stat Lab 11/15/20 15:55 Received CULTURE BLOOD [BC] Stat Lab 11/15/20 16:00 Received CULTURE SPUTUM + SMEAR [RM] Urgent Lab 11/15/20 15:55 Ordered CULTURE URINE [RM] Routine Lab 11/15/20 15:55 Received CULTURE WOUND + SMEAR [RM] Stat Lab 11/15/20 17:14 Ordered Sodium Chloride 0.9% [Normal Saline] 1,000 ml Med 11/15/20 17:15 Active IV ASDIRECTED Sodium Chloride 0.9% [Saline Flush] Med 11/15/20 15:54 Active 10 ml FLUSH ASDIRECTED PRN Blood Culture x2 Reflex Set [OM.PC] Stat Oth 11/15/20 15:55 Ordered Isolation [COMM] Routine Oth 11/15/20 15:56 Active Obtain Past Medical Record [OM.PC] Stat Oth 11/15/20 15:55 Active Peripheral IV Insertion Adult [OM.PC] Stat Oth 11/15/20 15:55 Ordered Resuscitation Status Routine Resus Stat 11/15/20 15:54 Ordered Medication Orders Sodium Chloride (Normal Saline) 1,000 mls @ 100 mls/hr IV ASDIRECTED LIZ Last Admin: 11/15/20 17:23 Dose: 100 mls/hr Documented by: FRANKLYN Sodium Chloride (Saline Flush) 10 ml FLUSH ASDIRECTED PRN PRN Reason: Keep Vein Open Labs: Laboratory Tests 11/15/20 11/15/20 11/15/20 Range/Units 15:55 15:55 15:55 PT 13.8 H (9.5-12.0) SEC INR 1.4 APTT 31.0 (24.5-32.8) SEC Lactic Acid 4.5 H (0.4-2.0) mmol/L Magnesium 1.8 (1.8-2.4) mg/dL Creatine Kinase (26-308) U/L Creatine Kinase Index (0.0-2.5) % CK-MB (CK-2) (0.00-3.60) ng/mL Troponin I (0.000-0.056) ng/mL C-Reactive Protein (<=0.9) mg/dL NT-Pro-B Natriuret Pep (0-125) pg/mL TSH, Ultra Sensitive 0.880 (0.358-3.740) mIU/mL SARS-CoV-2 RNA (FRANSICO) (NEGATIVE) 11/15/20 11/15/20 11/15/20 Range/Units 15:55 15:55 15:55 PT (9.5-12.0) SEC INR APTT (24.5-32.8) SEC Lactic Acid (0.4-2.0) mmol/L Magnesium (1.8-2.4) mg/dL Creatine Kinase (26-308) U/L Creatine Kinase Index (0.0-2.5) % CK-MB (CK-2) (0.00-3.60) ng/mL Troponin I 0.042 (0.000-0.056) ng/mL C-Reactive Protein 6.3 H (<=0.9) mg/dL NT-Pro-B Natriuret Pep 273 H (0-125) pg/mL TSH, Ultra Sensitive (0.358-3.740) mIU/mL SARS-CoV-2 RNA (FRANSICO) Positive H (NEGATIVE) 11/15/20 Range/Units 15:55 PT (9.5-12.0) SEC INR APTT (24.5-32.8) SEC Lactic Acid (0.4-2.0) mmol/L Magnesium (1.8-2.4) mg/dL Creatine Kinase 900 H (26-308) U/L Creatine Kinase Index 0.4 (0.0-2.5) % CK-MB (CK-2) 3.80 H (0.00-3.60) ng/mL Troponin I (0.000-0.056) ng/mL C-Reactive Protein (<=0.9) mg/dL NT-Pro-B Natriuret Pep (0-125) pg/mL TSH, Ultra Sensitive (0.358-3.740) mIU/mL SARS-CoV-2 RNA (FRANSICO) (NEGATIVE) CBC and comprehensive metabolic panel were ordered from the correction earlier today by his oncologist with pertinent findings including WBCs of 7.2 including neutrophils of 88.7%, BUN 20, random blood sugar of 168 with additional positive UA including 75-100 RBCs per high-power field and 20-30 WBCs per high-power field with small leukocyte esterase but negative nitrites. Urine specimen was ordered for culture and sensitivity by me in the emergency room today.. Blood cultures x2 were collected Specimen collected from his lumbar decubitus for Gram stain, culture, and sensitivity. Microbiology 11/15/20 15:55 Nasal, Unspecified Influenza Type A Antigen Screen - Final NEGATIVE INFLUENZA A VIRUS AG REFERENCE RANGE: NEGATIVE 11/15/20 15:55 Nasal, Unspecified Influenza Type B Antigen Screen - Final NEGATIVE INFLUENZA B VIRUS AG REFERENCE RANGE: NEGATIVE Meds: Medications Generic Name Dose Route Start Last Admin Trade Name Freq PRN Reason Stop Dose Admin Sodium Chloride 1,000 mls @ 100 mls/hr 11/15/20 17:15 11/15/20 17:23 Normal Saline IV 100 mls/hr ASDIRECTED LIZ Administration Sodium Chloride 10 ml 11/15/20 15:54 Saline Flush FLUSH ASDIRECTED PRN Keep Vein Open Discontinued Medications Generic Name Dose Route Start Last Admin Trade Name Freq PRN Reason Stop Dose Admin Acetaminophen 650 mg 11/15/20 15:54 11/15/20 16:11 Tylenol PO 11/15/20 15:55 Not Given ONETIME ONE Famotidine 40 mg 11/15/20 16:09 11/15/20 16:13 Pepcid IVPUSH 11/15/20 16:10 40 mg ONETIME ONE Administration Ceftriaxone Sodium 1 gm/ 100 mls @ 200 mls/hr 11/15/20 15:54 11/15/20 16:07 Sodium Chloride IV 11/15/20 16:23 200 mls/hr ONETIME ONE Administration Vancomycin HCl 1 gm/ Sodium 250 mls @ 250 mls/hr 11/15/20 15:54 11/15/20 16:52 Chloride IV 11/15/20 16:53 250 mls/hr ONETIME ONE Administration Sodium Chloride 1,000 mls @ 999 mls/hr 11/15/20 16:00 11/15/20 16:08 Normal Saline IV 11/15/20 17:00 999 mls/hr .BOLUS ONE Administration Ketorolac Tromethamine 15 mg 11/15/20 16:09 11/15/20 16:13 Toradol IVPUSH 11/15/20 16:10 15 mg ONETIME ONE Administration - Radiology Interpretation Free Text/Narrative:: school bus monitor initially showed moderate sinus tachycardia with heart rate in the 130s with subsequent improvement to the 110s after aggressive therapy as below. No ectopy or other significant arrhythmia. Chest x-ray, portable, shows mild diffuse fine pulmonary infiltrates and/your concomitant mild CHF with trace fluid along the right minor fissure. Moderate stomach gaseous distention with no direct evidence of free air. Patient chest x-ray report was received prior to patient's transfer. Departure - Departure Time of Disposition: 17:55 Disposition: DC/Tfer to [facility] 02 Condition: Fair Clinical Impression: UTI (urinary tract infection), CLL (chronic lymphocytic leukemia), Peptic reflux disease, CHF (congestive heart failure), Sepsis, Paraplegia, Decubitus ulcer, Elevated LFTs, Elevated CK - Discharge Information *PRESCRIPTION DRUG MONITORING PROGRAM REVIEWED*: Not Applicable *COPY OF PRESCRIPTION DRUG MONITORING REPORT IN PATIENT GAGE: Not Applicable Forms: ED Department Discharge, Interfacility Transfer [facility] Sepsis Event Note (ED) - Evaluation Sepsis Screening Result: Possible Sepsis Risk - Focused Exam Vital Signs: Vital Signs Temp Pulse Resp BP Pulse Ox 11/15/20 18:00 37.2 C 20 87/54 L 97 11/15/20 17:30 37.2 C 22 H 90/48 L 97 11/15/20 16:50 37.7 C 24 H 90/54 L 97 11/15/20 15:44 39.4 C H 133 H 18 109/54 L 94 L - Problem List & Annotations (1) Sepsis SNOMED Code(s): 96020564 Code(s): A41.9 - SEPSIS, UNSPECIFIED ORGANISM Status: Acute Priority: High Onset Date: 11/15/20 Annotation/Comment:: Telephone consultation at [address] Ashford, emergency room physician at [facility], who does accept the patient for direct admission, with no further treatment recommendations given. He does agree to contact their hospitalist concerning this patient transfer. Patient did remain somewhat hypotensive prior to transfer with aggressive IV sodium chloride fluids/IV boluses given shortly after patient's arrival to our emergency room. Blood cultures x2 were collected prior to initiation of antibiotic therapy. IV Rocephin was completed in the emergency room with IV vancomycin to be completed in route along with his aggressive IV fluids as below. Note elevated lactic acid level and CRP with repeat lactic acid level recommended shortly after arrival to [facility]. Secondary to patient's fever patient was given IV Toradol with caution secondary to his current Xarelto therapy. Note previous Tylenol given at the correction prior to transfer to this facility with persistent high fever at time of arrival to our emergency room. Otherwise his clinical exam and vital signs were stable at time of transfer. 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 Urosepsis with concomitant returned COVID-19 infection are likely etiologies of patient's sepsis, although note refractory lumbar decubitus ulcer as below. Note that the patient does have a previous history of severe urosepsis requiring hospitalization at [facility] in [place] on 08/15/2020. Qualifiers: Sepsis type: sepsis due to unspecified organism Sepsis acute organ dysfunction status: without acute organ dysfunction Qualified Code(s): A41.9 - Sepsis, unspecified organism (2) COVID-19 SNOMED Code(s): 371219481 Code(s): U07.1 - COVID-19 Status: Acute Priority: High Onset Date: 11/15/20 Annotation/Comment:: Note that the patient did have a positive Covid evaluation on 09/18/2020 with subsequent to follow-up negative evaluations. He has also already received his 2 immunizations for COVID-19. Strongly suspect COVID-19 variant with our nurses to determine whether genetic analysis can be performed/sent out through this facility, or whether this needs to be collected by the accepting providers. No significant hypoxia at this time. Note co ncomitant probable CHF secondary to his sinus tachycardia from his sepsis. (3) CHF (congestive heart failure) SNOMED Code(s): 95954551 Code(s): I50.9 - HEART FAILURE, UNSPECIFIED Status: Acute Priority: High Onset Date: 11/15/20 Annotation/Comment:: No previous history of significant CHF. Probable mild CHF secondary to his sinus tachycardia from his sepsis. Secondary to sepsis and lactic acid elevation the patient was aggressively hydrated with 1 L of normal saline initially with subsequent normal saline at 100 mls per hour, however this was increased to an IV bolus shortly prior to patient's transfer secondary to his persistent hypotension. Close observation by accepting providers with consideration of norepinephrine infusion, etc. depending on his clinical course. He denies any chest pain or anginal type symptoms. His troponin I is still normal, although high normal at this time. Note previous stable echocardiogram on 08/17/2019 as above with repeat evaluation per accepting providers. Qualifiers: Heart failure type: combined systolic and diastolic Heart failure chronicity: acute Qualified Code(s): I50.41 - Acute combined systolic (congestive) and diastolic (congestive) heart failure (4) Elevated CK SNOMED Code(s): 588307425 Code(s): R74.8 - ABNORMAL LEVELS OF OTHER SERUM ENZYMES Status: Acute Priority: High Onset Date: 11/15/20 Annotation/Comment:: Significantly elevated CK and mildly elevated CK-MB, however very low cardiac index with no evidence of significant cardiac etiology. No evidence of rhabdomyolysis with aggressive IV hydration as above secondary to his current sepsis. CK elevation possibly secondary to his COVID-19. Fortunately the patient is on Xarelto. Continue to observe closely by accepting providers. (5) CLL (chronic lymphocytic leukemia) SNOMED Code(s): 84017008 Code(s): C91.10 - CHRONIC LYMPHOCYTIC LEUK OF B-CELL TYPE NOT ACHIEVE REMIS Status: Chronic Priority: High Annotation/Comment:: Significant leukocytosis secondary to his current sepsis and previous CLL. Oncology consultation by accepting providers. (6) Sleep apnea SNOMED Code(s): 58301318 Code(s): G47.30 - SLEEP APNEA, UNSPECIFIED Status: Chronic Priority: Medium Annotation/Comment:: Patient has been compliant with his CPAP with his machine sent with the patient to the accepting facility. 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 In addition, note secondary stool and urine incontinence, including neurogenic bladder. Decubiti prophylaxis in affect, including in his feet bilaterally. Note significant persistent large 4 cm grade 3 decubitus ulcer in the lumbar region with packing and dressing in place. Wound specimen was collected for culture and sensitivity prior to patient's transfer. Note IV antibiotic therapy for his sepsis as above. Secondary to his paraplegia and disability current correction care at [facility] in [place]. (8) UTI (urinary tract infection) SNOMED Code(s): 76784121 Code(s): N39.0 - URINARY TRACT INFECTION, SITE NOT SPECIFIED Status: Acute Priority: High Onset Date: 11/15/20 Annotation/Comment:: Urine specimen set up for culture and sensitivity. Possible urosepsis as above. Note suprapubic catheter secondary to neurogenic bladder. Qualifiers: Urinary tract infection type: acute cystitis Hematuria presence: with hematuria Qualified Code(s): N30.01 - Acute cystitis with hematuria (9) Peptic reflux disease SNOMED Code(s): 582098032 Code(s): K21.9 - GASTRO-ESOPHAGEAL REFLUX DISEASE WITHOUT ESOPHAGITIS Status: Chronic Priority: Medium Annotation/Comment:: No evidence of acute GI bleed. High-dose IV Pepcid given as GI prophylaxis in the emergency room. Note previous history of Kennedy's esophagitis however negative biopsy at time of EGD on 10/26/2016. (10) Decubitus ulcer SNOMED Code(s): 178614204 Code(s): L89.90 - PRESSURE ULCER OF UNSPECIFIED SITE, UNSPECIFIED STAGE Status: Acute Priority: High Annotation/Comment:: As above. Specimen collected for Gram stain, culture, and sensitivity. Qualifiers: Pressure injury location: lower back Pressure injury stage: pressure injury of deep tissue (11) Elevated LFTs SNOMED Code(s): 054441701 Code(s): R79.89 - OTHER SPECIFIED ABNORMAL FINDINGS OF BLOOD CHEMISTRY Status: Acute Priority: Medium Onset Date: 11/15/20 Annotation/Comment:: Possibly secondary to mild CHF. Observe closely by accepting providers. - Problem List Review Problem List Initiated/Reviewed/Updated: Yes - My Orders Last 24 Hours: My Active Orders 11/15/20 Breakfast Nothing Per Oral Diet [DIET] 11/15/20 15:54 Sodium Chloride 0.9% [Saline Flush] 10 ml FLUSH ASDIRECTED PRN Resuscitation Status Routine 11/15/20 15:55 Cardiac Monitoring [RC] CONTINUOUS Communication Order [RC] ROUTINE Oxygen Therapy, ED [RC] PRN Pulse Oximetry [RC] CONTINUOUS Up With Assistance [RC] ASDIRECTED Chest 1V Frontal [CR] Stat CULTURE BLOOD [BC] Stat CULTURE SPUTUM + SMEAR [RM] Urgent CULTURE URINE [RM] Routine Blood Culture x2 Reflex Set [OM.PC] Stat Obtain Past Medical Record [OM.PC] Stat Peripheral IV Insertion Adult [OM.PC] Stat 11/15/20 15:56 Peripheral IV Care [RC] . DIRECTED Isolation [COMM] Routine 11/15/20 16:00 Cardiac Monitoring [RC] . DIRECTED CULTURE BLOOD [BC] Stat 11/15/20 17:14 CULTURE WOUND + SMEAR [RM] Stat 11/15/20 17:15 Sodium Chloride 0.9% [Normal Saline] 1,000 ml IV ASDIRECTED - Assessment/Plan Last 24 Hours: My Active Orders 11/15/20 Breakfast Nothing Per Oral Diet [DIET] 11/15/20 15:54 Sodium Chloride 0.9% [Saline Flush] 10 ml FLUSH ASDIRECTED PRN Resuscitation Status Routine 11/15/20 15:55 Cardiac Monitoring [RC] CONTINUOUS Communication Order [RC] ROUTINE Oxygen Therapy, ED [RC] PRN Pulse Oximetry [RC] CONTINUOUS Up With Assistance [RC] ASDIRECTED Chest 1V Frontal [CR] Stat CULTURE BLOOD [BC] Stat CULTURE SPUTUM + SMEAR [RM] Urgent CULTURE URINE [RM] Routine Blood Culture x2 Reflex Set [OM.PC] Stat Obtain Past Medical Record [OM.PC] Stat Peripheral IV Insertion Adult [OM.PC] Stat 11/15/20 15:56 Peripheral IV Care [RC] . DIRECTED Isolation [COMM] Routine 11/15/20 16:00 Cardiac Monitoring [RC] . DIRECTED CULTURE BLOOD [BC] Stat 11/15/20 17:14 CULTURE WOUND + SMEAR [RM] Stat 11/15/20 17:15 Sodium Chloride 0.9% [Normal Saline] 1,000 ml IV ASDIRECTED Assessment:: As above Plan: As above. Extensive precautions were given to the patient, who is in agreement with the treatment plan. Ambulance transfer to [facility] as above.
[2020-11-15] MEDS ORDERED: Sodium Chloride 0.9% 1,000 ML IV ONE (16:00)
[2020-11-15] MEDS ORDERED: Ketorolac 30 MG/ML SDV IVPUSH ONE (16:09)
[2020-11-15] MEDS ORDERED: Famotidine 20 MG/2 ML SDV IVPUSH ONE (16:09)
[2020-11-15] MEDS ORDERED: Sodium Chloride 0.9% 1,000 ML IV SCH (17:15)
[2020-11-15 18:26] VITALS: BP 87/54
== END 2020-11-15 18:00 ==
LOC: LL.ED 15:43
DX: A41.89 Other specified sepsis (principal); U07.1 COVID-19; N39.0 Urinary tract infection, site not specified; K27.9 Peptic ulcer, site unspecified, unspecified as acute or chronic, without hemorrhage or perforation; C91.10 Chronic lymphocytic leukemia of B-cell type not having achieved remission; I50.9 Heart failure, unspecified; G82.20 Paraplegia, unspecified; L89.109 Pressure ulcer of unspecified part of back, unspecified stage; R79.89 Other specified abnormal findings of blood chemistry; R74.8 Abnormal levels of other serum enzymes; K21.9 Gastro-esophageal reflux disease without esophagitis; E78.00 Pure hypercholesterolemia, unspecified; M19.90 Unspecified osteoarthritis, unspecified site; Z79.899 Other long term (current) drug therapy; Z79.01 Long term (current) use of anticoagulants
CPT/HCPCS: 36415; 71045; 82550; 82553; 83605; 83735; 83880; 84443; 84484; 85610; 85730; 86140; 87040; 87070; 87077; 87086; 87088; 87186; 87804; 96365; 96367; 96375; 99284; 99285-25; J0696; J1885; J3370; J3490; J7030; J7050; U0002